=== PATIENT | female | born 1995 | race Caucasian/White ===

== ENCOUNTER 2023-12-30 10:09 | Emergency (ER) | payer BC ==
[~2023-12-30] VITALS: Ht 152.4 cm; Wt 90.7 kg
[2023-12-30] MEDS ORDERED: Phenergan25 MG PO (10:18)
[2023-12-30] MEDS ORDERED: Ondansetron4 MG PO (10:18)
== END 2023-12-30 12:37 | disposition left against medical advice (07) ==
LOC: ED 10:09
DX: R11.2 Nausea with vomiting, unspecified (principal); Z88.8 Allergy status to other drugs, medicaments and biological substances; Z53.21 Procedure and treatment not carried out due to patient leaving prior to being seen by health care provider

== ENCOUNTER 2024-04-04 07:38 | Emergency (ER) | payer SELFPAY ==
[~2024-04-04 07:38] MED LIST: Ondansetron4 MG PO; Phenergan25 MG PO
== END 2024-04-04 07:45 | disposition left against medical advice (07) ==
LOC: ED 07:38
DX: R11.2 Nausea with vomiting, unspecified (principal); Z88.8 Allergy status to other drugs, medicaments and biological substances; Z79.899 Other long term (current) drug therapy; Z53.21 Procedure and treatment not carried out due to patient leaving prior to being seen by health care provider

== ENCOUNTER 2024-04-04 17:53 | Inpatient (IN) | payer SELFPAY ==
[~2024-04-04] VITALS: Ht 154.9 cm; Wt 89.4 kg
[2024-04-04 18:16] VITALS: BP 109/63
[2024-04-04] MEDS ORDERED: diphenhydrAMINE hydrochloride 50 MG/ML VIAL IV ONE (18:45)
[2024-04-04] MEDS ORDERED: SODIUM CHLORIDE 0.9% 1,000 ML IV ONE (18:45)
[2024-04-04] MEDS ORDERED: Metoclopramide Hydrochloride 10 MG/2 ML VIAL IV ONE (18:45)
[2024-04-04 19:02] LABS: HEMATOCRIT 45.2 % (37.0-47.0); MEAN CELL VOLUME 82.3 fl (81.0-99.0); MEAN CORPUSCULAR HGB 28.1 pg (27.0-31.0); MEAN CORPUSCULAR HGB CONC 34.1 g/dl (33.0-37.0); MEAN PLATELET VOLUME 10.2 fl (9.6-12.3); PLATELET COUNT AUTOMATED 450 10*3/uL (130-400); RED BLOOD COUNT 5.49 10*6/uL (4.10-5.10); RED CELL DISTRI WIDTH 12.5 % (0-14.5); WHITE BLOOD COUNT 18.5 10*3/uL (4.8-10.8)
[2024-04-04 19:03] LABS: MANUAL DIFF REFLEX YES
[2024-04-04 19:24] LABS: ATYPICAL LYMPHS 3 % (0-0); PLATELET SUFFICIENCY HIGH (NORMAL); TOTAL CELLS COUNTED 100 #CELLS
[2024-04-04 19:27] LABS: ALKALINE PHOSPHATASE 66 U/L (46-116); BUN 12 mg/dl (9-23); CHLORIDE 99 mmol/L (98-107); LIPASE 25 U/L (12-53); POTASSIUM 2.8 mmol/L (3.4-5.1); SGPT/ALT 29 U/L (5-49); TOTAL PROTEIN 7.8 gm/dL (6.0-8.0)
[2024-04-04] MEDS ORDERED: DIAZEPAM 5 MG TAB PO ONE (19:45)
[2024-04-04] MEDS ORDERED: DIAZEPAM 10 MG/2 ML SYR IV ONE (19:50)
[2024-04-04] MEDS ORDERED: POTASSIUM CHLORIDE 20 MEQ TAB PO ONE (21:10)
[2024-04-04] MEDS ORDERED: SODIUM CHLORIDE 0.9% 1,000 ML IV SCH (21:50)
[2024-04-04] MEDS ORDERED: SODIUM CHLORIDE 0.9% 500 ML IV ONE (21:50)
[2024-04-04 22:00] VITALS: BP 127/88
[2024-04-04] MEDS ORDERED: POTASSIUM CHLORIDE IN WATER 100 ML IV SCH (22:00)
[2024-04-04] MEDS ORDERED: BISACODYL 5 MG TAB PO PRN (22:15)
[2024-04-04] MEDS ORDERED: Acetaminophen/Hydrocodone 5 MG/325 MG TABLET PO PRN (22:15)
[2024-04-04] MEDS ORDERED: ACETAMINOPHEN 650 MG SUPP R PRN (22:15)
[2024-04-04] MEDS ORDERED: Ondansetron Hydrochloride 4 MG/2 ML VIAL IV PRN (22:15)
[2024-04-04] MEDS ORDERED: BISACODYL 10 MG SUPP R PRN (22:15)
[2024-04-04] MEDS ORDERED: Magnesium Hydroxide 30 ML UDC PO PRN (22:15)
[2024-04-04] MEDS ORDERED: ACETAMINOPHEN 325 MG TAB PO PRN (22:15)
[2024-04-04] MEDS ORDERED: MORPHINE Sulfate 2 MG/ML SYR IV PRN (22:15)
[2024-04-04 23:36] VITALS: BP 136/72
[2024-04-05 00:02] LABS: BILIRUBIN 1+ (Negative); BLOOD Negative (Negative); CLARITY Cloudy (Clear); COLOR Dark Yellow (Yellow); GLUCOSE Negative (Negative); KETONE 2+ (Negative); LEUKO ESTERASE 1+ (Negative); NITRITE Negative (Negative); SPECIFIC GRAVITY >= 1.030 (1.001-1.030)
[2024-04-05 00:33] LABS: EPITHELIAL CELLS TNTC
[2024-04-05 00:38] LABS: BACTERIA 2+; WBC 21-30 wbc/hpf (0-5)
[2024-04-05] MEDS ORDERED: diphenhydrAMINE hydrochloride 50 MG/ML VIAL IV ONE (01:35)
[2024-04-05] MEDS ORDERED: POTASSIUM CHLORIDE 20 MEQ TAB PO ONE (01:35)
[2024-04-05 03:12] LABS: HEMATOCRIT 41.3 % (37.0-47.0); MEAN CELL VOLUME 84.3 fl (81.0-99.0); MEAN CORPUSCULAR HGB 28.4 pg (27.0-31.0); MEAN CORPUSCULAR HGB CONC 33.7 g/dl (33.0-37.0); MEAN PLATELET VOLUME 9.9 fl (9.6-12.3); PLATELET COUNT AUTOMATED 404 10*3/uL (130-400); RED CELL DISTRI WIDTH 12.7 % (0-14.5); WHITE BLOOD COUNT 18.9 10*3/uL (4.8-10.8)
[2024-04-05 03:22] LABS: MANUAL DIFF REFLEX YES
[2024-04-05 03:31] LABS: BUN 11 mg/dl (9-23); CHLORIDE 101 mmol/L (98-107); POTASSIUM 3.6 mmol/L (3.4-5.1)
[2024-04-05 03:56] LABS: PLATELET SUFFICIENCY HIGH (NORMAL); TOTAL CELLS COUNTED 100 #CELLS
[2024-04-05] MEDS ORDERED: FAMOTIDINE 10 MG TAB PO ONE (04:05)
[2024-04-05 07:08] LABS: BUN 8 mg/dl (9-23); CHLORIDE 101 mmol/L (98-107); POTASSIUM 3.7 mmol/L (3.4-5.1)
[2024-04-05 07:31] VITALS: BP 142/77
[2024-04-05] MEDS ORDERED: FAMOTIDINE 20 MG TAB PO ONE (08:15)
[2024-04-05] MEDS ORDERED: CALCIUM (TUMS) 500MG PO PRN (08:25)
[2024-04-05] MEDS ORDERED: Enoxaparin Sodium 40 MG/0.4 ML SYR SC SCH (10:00)
[2024-04-05] MEDS ORDERED: Promethazine Hydrochloride 25 MG/ML VIAL IV PRN (11:25)
[2024-04-05] MEDS ORDERED: diphenhydrAMINE hydrochloride 25 MG CAP PO ONE (11:25)
[2024-04-05] MEDS ORDERED: PROMETHAZINE HYDROCHLORIDE R PRN (11:25)
[2024-04-05] MEDS ORDERED: SODIUM CHLORIDE 0.9% 1,000 ML IV SCH (11:25)
[2024-04-05 11:52] VITALS: BP 128/73
[2024-04-05 16:00] VITALS: BP 136/60
[2024-04-05 20:00] VITALS: BP 149/80
[2024-04-05] MEDS ORDERED: Melatonin 5 MG TABLET PO PRN (20:00)
[2024-04-06] VITALS: BP 134/74
[2024-04-06 05:30] LABS: BUN 8 mg/dl (9-23); CHLORIDE 99 mmol/L (98-107); POTASSIUM 3.2 mmol/L (3.4-5.1)
[2024-04-06 06:32] LABS: HEMATOCRIT 40.6 % (37.0-47.0); MEAN CELL VOLUME 82.5 fl (81.0-99.0); MEAN PLATELET VOLUME 10.8 fl (9.6-12.3); PLATELET COUNT AUTOMATED 371 10*3/uL (130-400); RED BLOOD COUNT 4.92 10*6/uL (4.10-5.10); RED CELL DISTRI WIDTH 12.8 % (0-14.5); WHITE BLOOD COUNT 16.3 10*3/uL (4.8-10.8)
[2024-04-06 06:40] LABS: MANUAL DIFF REFLEX YES
[2024-04-06] MEDS ORDERED: POTASSIUM CHLORIDE 20 MEQ TAB PO ONE ×2 (07:35→11:30)
[2024-04-06 07:40] LABS: BURR CELLS FEW; PLATELET SUFFICIENCY NORMAL (NORMAL); POLYCHROMASIA SLIGHT; SCHISTOCYTES FEW; TOTAL CELLS COUNTED 100 #CELLS
[2024-04-06 08:00] VITALS: BP 144/87
[2024-04-06] MEDS ORDERED: PROMETHEGAN R (11:19)
[2024-04-06 12:00] VITALS: BP 111/59
== END 2024-04-06 11:37 | disposition home or self-care (01) | DRG 641 ==
LOC: ED 17:53 → 4E 21:27 → EDHOLD 21:27 → 4E 22:04
PROVIDERS: Nurse Practitioner Family; Student in an Organized Health Care Education/Training Program; ADMIT Internal Medicine; ATTEND Internal Medicine
DX: E86.0 Dehydration (principal); R65.10 Systemic inflammatory response syndrome (SIRS) of non-infectious origin without acute organ dysfunction; E87.6 Hypokalemia; D75.839 Thrombocytosis, unspecified; E03.9 Hypothyroidism, unspecified; F12.90 Cannabis use, unspecified, uncomplicated; R11.15 Cyclical vomiting syndrome unrelated to migraine; F41.9 Anxiety disorder, unspecified; E27.8 Other specified disorders of adrenal gland; Z82.5 Family history of asthma and other chronic lower respiratory diseases; Z90.49 Acquired absence of other specified parts of digestive tract; Z88.8 Allergy status to other drugs, medicaments and biological substances